=== PATIENT | female | born 1990 | race Caucasian/White ===

== ENCOUNTER 2020-08-16 18:26 | Emergency (ER) | payer OTHER, SELFPAY ==
[~2020-08-16] VITALS: Ht 157.5 cm; Wt 50.6 kg
[2020-08-16] MEDS ORDERED: HYDROcodone/APAP 5/325 TABLET PO ONE (20:30)
[2020-08-16] MEDS ORDERED: HYDROcodone/APAP 5/325 TABLET ONE (20:41)
[2020-08-16 20:50] VITALS: BP 131/56
== END 2020-08-16 20:52 | disposition home or self-care (01) ==
LOC: ED 20:46
DX: K02.9 Dental caries, unspecified (principal); Z72.9 Problem related to lifestyle, unspecified
CPT/HCPCS: 99283